=== PATIENT | female | born 1950 | race Caucasian/White ===

== ENCOUNTER 2021-08-15 08:46 | Emergency (ER) | payer BC ==
[~2021-08-15] VITALS: Ht 162.6 cm; Wt 63.5 kg
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
--- NOTE | 2021-08-15 08:59 | NUR ---
DR. MILLIGAN AT BEDSIDE
[2021-08-15] MEDS ORDERED: IBUP-1955 PO (09:17)
[2021-08-15] MEDS ORDERED: CYCL5TAB PO (09:17)
[2021-08-15] MEDS ORDERED: ACETAMINOPHEN 325 MG TABLET PO ONE (09:30)
[2021-08-15] MEDS ORDERED: BACI/NEOM/POLY B OINT PKT 1 UDPKT PACKET TP ONE (09:30)
[2021-08-15] MEDS ORDERED: TDAP [DIPH/PERTUSSIS/TET] 0.5 ML VIAL IM ONE ×2 (09:30→09:37)
[2021-08-15] MEDS ORDERED: ACETAMINOPHEN 325 MG TABLET ONE (09:35)
--- NOTE | 2021-08-15 09:53 | NUR ---
TDAP GIVEN ON RIGHT DELTOID
[2021-08-15 11:27] VITALS: BP 142/80
--- NOTE | 2021-08-15 11:27 | NUR ---
Patient discharged to home in stable condition. Written and verbal after care instructions given. Patient verbalizes understanding of instruction.
== END 2021-08-15 11:28 | disposition home or self-care (01) ==
LOC: ER 08:49
DX: S16.1XXA Strain of muscle, fascia and tendon at neck level, initial encounter (principal); S20.312A Abrasion of left front wall of thorax, initial encounter; S50.812A Abrasion of left forearm, initial encounter; S50.811A Abrasion of right forearm, initial encounter; R07.89 Other chest pain; Z79.899 Other long term (current) drug therapy; V43.92XA Unspecified car occupant injured in collision with other type car in traffic accident, initial encounter; Y93.89 Activity, other specified; Y92.89 Other specified places as the place of occurrence of the external cause; Y99.8 Other external cause status
CPT/HCPCS: 71250-TC; 72125-TC; 90715